=== PATIENT | female | born 1985 | race American Indian/Alaskan Native ===

== ENCOUNTER 2017-03-04 07:43 | Emergency (ER) | payer SELFPAY ==
[2017-03-04] MEDS ORDERED: Alum-Mag Hydrox-Simethicone Susp (30 mL) PO STA (08:25)
[2017-03-04] MEDS ORDERED: Alum-Mag Hydrox-Simethicone Susp (30 mL) ONE (08:40)
[2017-03-04 08:42] LABS: URINE BACTERIA RARE (<OCC); URINE BILIRUBIN NEGATIVE (NEGATIVE); URINE BLOOD 1+ (NEGATIVE); URINE COLOR Yellow (YELLOW); URINE GLUCOSE (UA) NORMAL (Normal); URINE KETONE NEGATIVE (NEGATIVE); URINE LEUKOCYTE ESTERASE NEG Leu/uL (Negative); URINE PROTEIN NEGATIVE (NEGATIVE); URINE UROBILINOGEN NORMAL mg/dL (0.2-1.0); WBC URINE 1 /hpf (0-5)
[2017-03-04 08:43] LABS: BASO % 0.9 % (0.0-2.0); EOS % 0.5 % (0.0-4.0); HEMATOCRIT 34.9 % (34.0-47.0); LYMPH % 21.5 % (20.0-40.0); MEAN CELL VOLUME 78.9 fL (81.0-99.0); MEAN CORPUSCULAR HEMOGLOBIN 26.1 pg (27.0-31.0); MEAN CORPUSCULAR HGB CONC 33.1 g/dL (33.0-37.0); MEAN PLATELET VOLUME 6.9 fL (7.2-11.7); MONO # 0.4 K/uL (0.0-0.8); MONO % 8.5 % (0.0-10.0); RED CELL DISTRIBUTION WIDTH 13.6 % (11.5-14.5); WHITE BLOOD COUNT 4.8 K/uL (4.8-10.8)
[2017-03-04 08:51] LABS: RBC URINE 3 /hpf (0-3)
[2017-03-04 09:03] LABS: CHLORIDE 100 mmol/L (98-107); POTASSIUM 4.1 mmol/L (3.6-5.2); SODIUM 137 mmol/L (132-148)
[2017-03-04 09:05] LABS: GFR AFRICAN-AMERICAN > 60
[2017-03-04 09:06] LABS: ALB/GLOB RATIO 1.1 (1.0-2.1); ALKALINE PHOSPHATASE 33 U/L (38-126); ALT/SGPT 30 U/L (9-52); AST/SGOT 32 U/L (14-36); BILIRUBIN,TOTAL 0.5 mg/dL (0.2-1.3); BLOOD UREA NITROGEN 9 mg/dL (7-17); CALCIUM 9.3 mg/dl (8.6-10.4); CARBON DIOXIDE 28 mmol/L (22-30); GLUCOSE,RANDOM 85 mg/dL (65-105); TOTAL PROTEIN 7.8 g/dL (6.3-8.3)
[2017-03-04 09:27] VITALS: RESP 16; TEMP 98.2; O2SAT 100
--- NOTE | 2017-03-04 09:57 | C.PDOC ---
History Of Present Illness <Fatimah Serrano - Last Filed: 03/04/17 10:26> <Yuki Ulloa - Last Filed: 03/04/17 14:59> 31 y/o female presents to ED with complaints of abdominal pain since 5am this morning. Patient states she woke up with pain and reports last bowel movement was 2 days ago. Patient states she had similar symptoms "months ago" and was seen at ED, had CT scan and told she may "have hemorrhoids". Patient denies fever, chills, nausea, vomiting or any other complaints at this time. (Fatimah Serrano) History Per: Patient History/Exam Limitations: no limitations Onset/Duration Of Symptoms: Hrs Current Symptoms Are (Timing): Still Present Location Of Pain/Discomfort: Diffuse <Fatimah Serrano - Last Filed: 03/04/17 10:26> <Yuki Ulloa - Last Filed: 03/04/17 14:59> Time Seen by Provider: 03/04/17 07:59 Chief Complaint (Nursing): Abdominal Pain Past Medical History Reviewed: Historical Data, Nursing Documentation, Vital Signs - Medical History PMH: No Chronic Diseases Surgical History: No Surg Hx Family History: States: No Known Family Hx - Social History Hx Alcohol Use: Yes Hx Substance Use: Yes (socially) - Immunization History Hx Tetanus Toxoid Vaccination: No Hx Influenza Vaccination: Yes Hx Pneumococcal Vaccination: No <Fatimah Serrano - Last Filed: 03/04/17 10:26> Vital Signs: Last Vital Signs Temp 98.2 F 03/04/17 09:26 Pulse 72 03/04/17 10:10 Resp 16 03/04/17 10:10 BP 96/61 L 03/04/17 10:10 Pulse Ox 100 03/04/17 10:32 Review Of Systems Constitutional: Negative for: Fever, Chills Gastrointestinal: Positive for: Abdominal Pain. Negative for: Nausea, Vomiting , Diarrhea Musculoskeletal: Negative for: Back Pain Skin: Negative for: Rash <Fatimah Serrano - Last Filed: 03/04/17 10:26> Physical Exam - Physical Exam Appears: Non-toxic, No Acute Distress Skin: Normal Color, Warm, Dry, No Rash Head: Atraumatic, Normacephalic Oral Mucosa: Moist Neck: Normal ROM, Supple Cardiovascular: Rhythm Regular Respiratory: Normal Breath Sounds, No Rales, No Rhonchi, No Wheezing Gastrointestinal/Abdominal: Soft, Tenderness (Diffuse), No Guarding, No Rebound Back: No CVA Tenderness Neurological/Psych: Oriented x3 <Fatimah Serrano - Last Filed: 03/04/17 10:26> ED Course And Treatment - Laboratory Results Result Diagrams: 03/04/17 08:37 03/04/17 08:37 O2 Sat by Pulse Oximetry: 100 (RA) Pulse Ox Interpretation: Normal <Fatimah Serrano - Last Filed: 03/04/17 10:26> - Laboratory Results Result Diagrams: 03/04/17 08:37 03/04/17 08:37 <Yuki Ulloa - Last Filed: 03/04/17 14:59> Medical Decision Making <Fatimah Serrano - Last Filed: 03/04/17 10:26> <Yuki Ulloa - Last Filed: 03/04/17 14:59> Medical Decision Making: Plan: Blood work, Xray, Maalox, Pepcid Progress: Xray showed large mass of stool Patient discharged with Miralax prescription and advised follow up with Clinic (Fatimah Serrano) Disposition Counseled Patient/Family Regarding: Studies Performed, Diagnosis, Need For Followup, Rx Given - Disposition Disposition Time: 10:00 - POA Present On Arrival: None <Fatimah Serrano - Last Filed: 03/04/17 10:26> <Yuki Ulloa - Last Filed: 03/04/17 14:59> - Disposition Referrals: [facility] [Outside] [facility] [Outside] Disposition: HOME/ ROUTINE Condition: STABLE Additional Instructions: Follow up with clinic or PMD for further evaluation Prescriptions: Polyethylene Glycol 3350 [Miralax] 17 gr PO DAILY PRN #10 packet PRN Reason: Constipation Instructions: Constipation (ED), High Fiber Diet (ED) Forms: [facility] [facility] (Pashto) - Clinical Impression Clinical Impression: Abdominal pain, Constipation - PA / TELEVISION REPAIRMAN / Resident Statement MD/DO has reviewed & agrees with the documentation as recorded. - Scribe Statement The provider has reviewed the documentation as recorded by the Scribe <Fatimah Serrano - Last Filed: 03/04/17 10:26> <Yuki Ulloa - Last Filed: 03/04/17 14:59> - Scribe Statement Tennille Rangel All medical record entries made by the Scribe were at my direction and personally dictated by me. I have reviewed the chart and agree that the record accurately reflects my personal performance of the history, physical exam, medical decision making, and the department course for this patient. I have also personally directed, reviewed, and agree with the discharge instructions and disposition. (Fatimah Serrano)
[2017-03-04 12:08] VITALS: BP 96/61; PULSE 72
--- NOTE | 2017-03-04 14:32 | RAD ---
Abdomen four views History: Abdominal pain. Comparison: None available. Findings: Lung castillo are clear. Moderate fecal retention in the colon. Relative paucity of small bowel gas. Degenerative changes in the spine and bilateral hips. Impression: Moderate fecal retention in the colon.
== END 2017-03-04 10:17 | disposition home or self-care (01) ==
LOC: C.ER 07:43
DX: K59.00 Constipation, unspecified (principal); R10.9 Unspecified abdominal pain